=== PATIENT | female | born 1965 ===

== ENCOUNTER 2017-07-11 09:43 | Day surgery (SDC) | payer SELFPAY ==
[2017-07-11] MEDS ORDERED: Lactated Ringer's 500 ML IV ONE (10:37)
[2017-07-11] MEDS ORDERED: Propofol 10 mg/ml Inj (20 ML) ONE (10:59)
[2017-07-11 11:40] VITALS: BP 82/41; PULSE 65; RESP 16; TEMP 96.8; O2SAT 100
== END 2017-07-11 13:05 | disposition home or self-care (01) ==
LOC: H.ENDO 09:43
PROVIDERS: ATTEND Internal Medicine Gastroenterology
DX: Z12.11 Encounter for screening for malignant neoplasm of colon (principal); E78.5 Hyperlipidemia, unspecified; K57.30 Diverticulosis of large intestine without perforation or abscess without bleeding
CPT/HCPCS: 45378; J2001; J2704; J7120

== ENCOUNTER 2017-12-28 17:20 | Emergency (ER) | payer OTHER ==
[2017-12-28] MEDS ORDERED: Sodium Chloride 0.9% 1,000 ML IV STA (17:53)
--- NOTE | 2017-12-28 18:01 | ED PDOC ---
HPI: General Adult Time Seen by Provider: 12/28/17 17:42 Chief Complaint (Nursing): Dizziness/Lightheaded Chief Complaint (Provider): Dizziness, headache History Per: Patient History/Exam Limitations: no limitations Onset/Duration Of Symptoms: Intermittent Episodes Current Symptoms Are (Timing): Still Present Additional History Per: Patient Additional Complaint(s): 52yo female, otherwise well, comes to ER reporting dizziness x 2 days and a p osterior headache x 2 weeks. She reports the headache is at the base of her head and in her nasal area as well; denies any associated trauma, vision changes, or focal weakness. Patient also reports the dizziness is intermittently present x 2 days, with nausea. She denies any vomiting, bloody emesis, neck pain, back pain, abdominal pain, chest pain, or shortness of breath. She has been taking Tylenol 500mg PO, last dose at 3pm today, with no relief. She reports the dizziness initially started when she got up from bed yesterday and has been intermittently present; she states the dizziness is present while laying down as well. She states she has never had such symptoms before. Headache is not the worst in her life. Is a mild ache. No neck pain. Has had runny nose, nasal congestion, and sneezes. PMD: [facility] Past Medical History Reviewed: Historical Data, Nursing Documentation, Vital Signs Vital Signs: Last Vital Signs Temp 98.1 F 12/28/17 17:28 Pulse 78 12/28/17 17:28 Resp 18 12/28/17 17:28 BP 136/90 12/28/17 17:28 Pulse Ox 100 12/28/17 17:28 - Medical History PMH: Hypercholesterolemia - Surgical History Surgical History: No Surg Hx - Family History Family History: States: No Known Family Hx - Living Arrangements Living Arrangements: With Family - Home Medications Home Medications: Ambulatory Orders Medication Instructions Recorded Meclizine [Antivert] 25 mg PO BID PRN #5 tab 12/28/17 - Allergies Allergies/Adverse Reactions: Allergies Allergy/AdvReac Type Severity Reaction Status Date / Time corn Allergy RASH Verified 07/11/17 10:35 Penicillins Allergy RASH Verified 07/11/17 10:35 sodium fluoride Allergy ANGIOEDEMA Verified 07/11/17 10:36 [From Flura-Drops] sulfacetamide Allergy RASH Verified 07/11/17 10:36 [From Sulfamide] Review of Systems ROS Statement: Except As Marked, All Systems Reviewed And Found Negative Constitutional: Positive for: Weakness. Negative for: Fever, Chills Eyes: Negative for: Pain, Vision Change ENT: Positive for: Nose Congestion Cardiovascular: Negative for: Chest Pain Respiratory: Negative for: Cough, Shortness of Breath Gastrointestinal: Positive for: Nausea. Negative for: Vomiting, Abdominal Pain, Diarrhea Genitourinary Female: Negative for: Dysuria, Frequency Musculoskeletal: Negative for: Neck Pain, Back Pain Skin: Negative for: Rash Neurological: Positive for: Headache, Dizziness. Negative for: Weakness, Numbness Physical Exam - Reviewed Nursing Documentation Reviewed: Yes Vital Signs Reviewed: Yes - Physical Exam Appears: Positive for: Non-toxic, No Acute Distress Head Exam: Positive for: ATRAUMATIC, NORMAL INSPECTION, NORMOCEPHALIC Skin: Positive for: Normal Color, Warm, Dry Eye Exam: Positive for: Normal appearance, EOMI, PERRL ENT: Positive for: Nasal Congestion. Negative for: Pharyngeal Erythema, Tonsillar Exudate, Tonsillar Swelling Neck: Positive for: Normal, Supple Cardiovascular/Chest: Positive for: Regular Rate, Rhythm Respiratory: Positive for: Normal Breath Sounds Gastrointestinal/Abdominal: Positive for: Normal Exam, Soft. Negative for: Tenderness Back: Positive for: Normal Inspection. Negative for: L CVA Tenderness, R CVA Tenderness, Vertebral Tenderness Extremity: Positive for: Normal ROM, Other (5/5 professional caster strength bilaterally; 5/5 motor strength). Negative for: Pedal Edema, Deformity, Swelling Neurologic/Psych: Positive for: Alert, digester operator helper II-XII (intact), Oriented. Negative for: Motor/Sensory Deficits, Aphasia, Facial Droop - Laboratory Results Result Diagrams: 12/28/17 19:00 12/28/17 19:00 Interpretation Of Abn Labs: 14.1 wbc - ECG ECG: Positive for: Interpreted By Me, Viewed By Me ECG Rhythm: Positive for: Normal QRS, Normal ST Segment, Sinus Rhythm O2 Sat by Pulse Oximetry: 100 (RA) Pulse Ox Interpretation: Normal - CT Scan/US ct Other Rad Studies (CT/US): Read By Radiologist Other Rad Interpretation: no acute - Progress ED Course And Treament: 742: Stable. Pain free. No dizziness. AAOx3. Tolerated PO. WBC elevated. Pt. advised about need for lumbar puncture to evaluate for meningitis and other brain related issues. Pt. and present. Pt. has capacity to make decisions. Spoke to with a Yoruba speaking nurse, Mari. Pt. thoroughly explained about meningitis, infections, and brain related issues that can be causing the headaches. Pt. understands need for a lumbar puncture and how it would be done. Pictures and video shown about it. Pt. and refuse. Are aware of possible or decreased functioning from the possible causes and not getting treated. They wish to return at another time if symptoms return. Medical Decision Making Medical Decision Making: Impression: Headache, dizziness Plan: * Labs * CT Head w/o contrast * EKG * IV Fluids * Meclizine 25mg PO * Rapid flu Scribe Attestation: Documented by Lindy Franklin, acting as a scribe for Cameron Page MD Provider Scribe Attestation: All medical record entries made by the Scribe were at my direction and personally dictated by me. I have reviewed the chart and agree that the record accurately reflects my personal performance of the history, physical exam, medical decision making, and the department course for this patient. I have also personally directed, reviewed, and agree with the discharge instructions and disposition. Disposition - Clinical Impression Clinical Impression: Dizziness, Headache, URI (upper respiratory infection) - Patient ED Disposition Is Patient to be Admitted: No Counseled Patient/Family Regarding: Studies Performed, Diagnosis, Need For Followup, Rx Given - Disposition Referrals: [facility] [Outside] - 12/29/17 Disposition: Against Medical Advice Disposition Time: 20:12 Condition: STABLE Additional Instructions: Se le explic detalladamente acerca de la meningitis, las infecciones y los problemas relacionados con el cerebro que pueden estar causando los abhijeet de meseret. Usted entiende la necesidad de shayy puncin lumbar y java designer se timmy. Imgenes y video fueron mostrados al respecto. Te ests negando. Usted es consciente de la posible muerte o disminucin del funcionamiento debido a las posibles causas del dolor de meseret y al no ser tratado. Regrese lo ms pronto posible para shayy evaluacin y tratamiento adicionales. You have been thoroughly explained about meningitis, infections, and brain related issues that can be causing the headaches. You understand need for a lumbar puncture and how it would be done. Pictures and video were shown about it. You are refusing. You are aware of possible or decreased functioning from the possible causes of the headache and not getting treated. Return soon as possible for further evaluation and treatment. Prescriptions: Meclizine [Antivert] 25 mg PO BID PRN #5 tab PRN Reason: Dizziness Instructions: Dizziness, Nonvertigo, (DC), Viral Upper Respiratory Infection, Adult (DC), Headache, Adult (DC) Print Language: DUTCH
--- NOTE | 2017-12-28 18:48 | CT ---
Date of service: 12/28/2017 PROCEDURE: CT HEAD WITHOUT CONTRAST. HISTORY: headache COMPARISON: None available. TECHNIQUE: Axial computed tomography images were obtained through the head/brain without intravenous contrast. Radiation dose: Total exam DLP = 682.5 mGy-cm. This CT exam was performed using one or more of the following dose reduction techniques: Automated exposure control, adjustment of the mA and/or kV according to patient size, and/or use of iterative reconstruction technique. FINDINGS: HEMORRHAGE: No intracranial hemorrhage. BRAIN: Rubi-white matter differentiation is preserved. There is no mass, mass effect or abnormal extra-axial fluid collection. There is no territorial infarction. The midline sagittal structures are normal. VENTRICLES: The ventricles are normal in size, shape and configuration. CALVARIUM: The skull base and calvarium are normal. PARANASAL SINUSES: There is scattered mucosal thickening in the ethmoid air cells. The remaining included paranasal sinuses are clear. MASTOID AIR CELLS: Predominantly clear. OTHER FINDINGS: None. IMPRESSION: No acute intracranial abnormality.
[2017-12-28 19:19] LABS: PROTHROMBIN TIME 10.9 Seconds (9.8-13.1)
[2017-12-28 19:20] LABS: ALB/GLOB RATIO 1.1 (1.0-2.1); ALBUMIN 4.2 g/dL (3.5-5.0); BLOOD UREA NITROGEN 15 mg/dl (7-17); GFR NON-AFRICAN AMERICAN > 60
[2017-12-28 19:21] LABS: BASO # 0.1 K/uL (0.0-0.2); BASO % 0.7 % (0.0-2.0); EOS # 0.2 K/uL (0.0-0.7); EOS % 1.1 % (0.0-4.0); HEMOGLOBIN 12.2 g/dL (12.0-16.0); LYMPH # 1.7 K/uL (1.0-4.3); LYMPH % 12.4 % (20.0-40.0); MEAN CELL VOLUME 88.4 fl (81.0-99.0); MEAN CORPUSCULAR HEMOGLOBIN 29.6 pg (27.0-31.0); MEAN CORPUSCULAR HGB CONC 33.5 g/dL (33.0-37.0); MEAN PLATELET VOLUME 7.4 fl (7.2-11.7); MONO # 0.6 K/uL (0.0-0.8); NEUT # 11.6 K/uL (1.8-7.0); NEUT % 81.8 % (50.0-75.0); NRBC % 0.1 % (0.0-0.0); PARTIAL THROMBOPLASTIN TIME 31.2 Seconds (25.6-37.1); RBC 4.12 Mil/uL (3.80-5.20); RED CELL DISTRIBUTION WIDTH 13.1 % (11.5-14.5); WHITE BLOOD COUNT 14.1 K/uL (4.8-10.8)
[2017-12-28 19:30] LABS: ALT/SGPT 53 U/L (9-52); AST/SGOT 51 U/L (14-36)
[2017-12-28 22:11] VITALS: BP 133/87; PULSE 77; RESP 16; TEMP 98.3; O2SAT 99
--- NOTE | 2017-12-29 09:41 | CARD ---
APPROVED REPORT Date of service: 12/28/2017 EKG Measurement Heart [id number] <Conclusion> Sinus bradycardia Otherwise normal ECG
== END 2017-12-28 20:55 | disposition left against medical advice (07) ==
LOC: H.ER 17:20
DX: R42 Dizziness and giddiness (principal); R51 Headache; J06.9 Acute upper respiratory infection, unspecified; E78.00 Pure hypercholesterolemia, unspecified; Z88.0 Allergy status to penicillin
CPT/HCPCS: 70450; 80053; 84484; 85025; 85610; 85730; 87804; 93005; 99284; J7030